=== PATIENT | male | born 1960 | race Caucasian/White ===

== ENCOUNTER 2024-01-02 15:12 | Inpatient (IN) ==
--- NOTE | 2024-01-02 16:19 | EKG ---
Test Reason : SOB Blood Pressure : */* mmHG Vent. Rate : 67 BPM Atrial Rate : 67 BPM P-R Int : 160 ms QRS Dur : 94 ms QT Int : 376 ms P-R-T Axes : 52 96 63 degrees QTc Int : 397 ms Sinus rhythm with marked sinus arrhythmia Rightward axis Borderline ECG No previous ECGs available Confirmed by Constantin Desouza MD ([id number]) on 01/03/2024 7:50:41 AM Referred By: Confirmed By: Constantin Desouza MD
[2024-01-02 16:40] LABS: BASOPHILS # (AUTO) 0.1 X10^3/uL (0.0-0.1); BASOPHILS % (AUTO) 1.7 % (0.2-1.0); EOSINOPHILS # (AUTO) 0.2 x10^3/uL (0.0-0.2); EOSINOPHILS % (AUTO) 3.1 % (0.9-2.9); HEMATOCRIT 38.5 % (42.0-54.0); HEMOGLOBIN 13.1 g/dL (13.5-18.0); LYMPHOCYTES # (AUTO) 0.7 X10^3/uL (1.3-2.9); LYMPHOCYTES % (AUTO) 12.8 % (21.0-51.0); MEAN CORPUSCULAR HEMOGLOBIN 34.4 pg (27.0-34.0); MEAN CORPUSCULAR HGB CONC 34.1 g/dL (33.0-35.0); MEAN CORPUSCULAR VOLUME 100.9 fL (80.0-100.0); MEAN PLATELET VOLUME 8.6 fL (7.4-11.0); MONOCYTES # (AUTO) 0.5 x10^3/uL (0.3-0.8); MONOCYTES % (AUTO) 9.2 % (0.0-13.0); NEUTROPHILS # (AUTO) 4.2 x10^3/uL (2.2-4.8); NEUTROPHILS % (AUTO) 73.2 % (42.0-75.0); PLATELET COUNT 165 X10^3/uL (150.0-450.0); RED BLOOD COUNT 3.81 X10^6/uL (4.7-6.0); RED CELL DISTRIBUTION WIDTH 14.2 % (11.6-16.5); WHITE BLOOD COUNT 5.7 X10^3/uL (3.6-10.0)
[2024-01-02 17:20] LABS: ALANINE AMINOTRANSFERASE 17 Units/L (12-78); ALBUMIN 3.5 g/dL (3.4-5.0); ALKALINE PHOSPHATASE 75 Units/L (46-116); ASPARTATE AMINO TRANSFERASE 18 Units/L (15-37); BLOOD UREA NITROGEN 10 mg/dL (7-18); CALCIUM 8.7 mg/dL (8.5-10.1); CARBON DIOXIDE 31.7 mmol/L (21-32); CHLORIDE 100 mmol/L (98-107); GLUCOSE 70 mg/dL (65-99); POTASSIUM 3.6 mmol/L (3.5-5.1); SODIUM 137 mmol/L (136-145); TOTAL PROTEIN 7.1 g/dL (6.4-8.2); eGFR NON BLACK RACES > 60 (>60)
[2024-01-02] MEDS ORDERED: NS 100 ML IV 100 ML ONE (17:43)
[2024-01-02] MEDS ORDERED: OMNIPAQUE 350 mg/mL 100 mL BTL 100 ML ONE (17:43)
[2024-01-02 18:08] VITALS: BMI 27.2
[2024-01-02 18:22] LABS: BILIRUBIN,URINE NEGATIVE (NEGATIVE); BLOOD/HEMOGLOBIN,URINE 4+ (NEGATIVE); GLUCOSE, URINE NEGATIVE (NEGATIVE); KETONES,URINE NEGATIVE (NEGATIVE); LEUKOCYTE ESTERASE ,URINE NEGATIVE (NEGATIVE); NITRITES,URINE NEGATIVE (NEGATIVE); PROTEIN,URINE NEGATIVE (NEGATIVE); UROBILINOGEN,URINE NORMAL (NORMAL)
[2024-01-02] MEDS: NS 1,000 ML IV 1,000 ML IV SCH (18:23)
[2024-01-02 18:33] LABS: APPEARANCE,URINE CLEAR (CLEAR); BACTERIA,URINE NEGATIVE /HPF (NEGATIVE); COLOR,URINE STRAW (YELLOW); RBC,URINE 0-2 /HPF (0-3); SQUAMOUS EPITHELIAL CELL,UR RARE /HPF (NEGATIVE)
[2024-01-02] MEDS: K-DUR TAB 20 MEQ PO ONE (18:37)
[2024-01-02] MEDS: CONSULT PHARMACY - POTASSIUM & MAGNESIUM XX SCH (19:16)
--- NOTE | 2024-01-02 19:16 | EKG ---
Test Reason : SOB Blood Pressure : */* mmHG Vent. Rate : 65 BPM Atrial Rate : 65 BPM P-R Int : 164 ms QRS Dur : 90 ms QT Int : 394 ms P-R-T Axes : 67 83 79 degrees QTc Int : 409 ms Sinus rhythm with marked sinus arrhythmia Otherwise normal ECG When compared with ECG of 02-JAN-2024 15:57, (Unconfirmed) No significant change was found Confirmed by Constantin Desouza MD ([id number]) on 01/03/2024 7:50:05 AM Referred By: Confirmed By: Constantin Desouza MD
--- NOTE | 2024-01-02 23:43 | EKG ---
Test Reason : SOB Blood Pressure : */* mmHG Vent. Rate : 71 BPM Atrial Rate : 71 BPM P-R Int : 172 ms QRS Dur : 90 ms QT Int : 404 ms P-R-T Axes : 65 79 72 degrees QTc Int : 439 ms Sinus rhythm with premature atrial complexes in a pattern of bigeminy Otherwise normal ECG When compared with ECG of 02-JAN-2024 19:00, (Unconfirmed) premature atrial complexes are now present Confirmed by Constantin Desouza MD ([id number]) on 01/03/2024 7:48:45 AM Referred By: Confirmed By: Constantin Desouza MD
--- NOTE | 2024-01-03 02:04 | CT ---
EXAM:CTA, CHESTHISTORY:CHEST PAIN, SOB, RULE OUT PE;COMPARISON:None.TECHNIQUE:Multiple axial images of the chest were obtained from the thoracic inlet to the upper abdomen after the administration of IV contrast. 3D reconstructions utilizing axial MIPS imaging was performed and reviewed. Dose reduction techniques including Automated Exposure Control (AEC) and adjustment of mA and kV were utilized.FINDINGS:There is a right MediPort catheter with its tip within the superior vena cava. There is no evidence for pulmonary artery embolus. The heart is not enlarged. There is atherosclerotic disease of the left anterior descending artery. There is no pericardial effusion. The aorta is intact. There are shotty AP window lymph nodes.The tracheobronchial tree is intact.There are subtle ground-glass opacity seen within the right upper lobe consistent with developing alveolar infiltrates more than the left upper lobe. There also focal patchy nodular infiltrates of the left upper lobe noted inferiorly and extending to the lingula. This is also seen of the left lower lobe. Discoid subsegmental atelectasis and focal pleural thickening of the left posterior lung base is noted. Incidental note is made of an azygous lobe. No chest wall abnormality is noted.There are calcified granulomas of the spleen. There are cholecystectomy clips in the gallbladder fossa. There is a supraumbilical ventral abdominal wall hernia with only herniation of omental fat through the defect.IMPRESSION:No pulmonary artery emboli.Early developing alveolar infiltrates scattered throughout both lungs, worse involving the left lung, more pronounced involving the lingula and left lower lobe.. Reactive AP window lymphadenopathy is seen.Evidence for prior granulomatous disease.THIS IS AN ELECTRONICALLY VERIFIED FINAL REPORT01/03/2024 2:01 AM - Electronically signed by Vicki Hill MD
--- NOTE | 2024-01-03 06:38 | CT ---
EXAM:CT ABDOMEN AND PELVIS WITH CONTRASTHISTORY:ABD PAIN, BLOOD IN STOOL;COMPARISON:None.TECHNIQUE:Axial CT images were obtained through the abdomen and pelvis after the intravenous administration of contrast. Coronal reformatted images were included.Informed written consent was obtained prior to contrast administration.All CT scans at this facility use dose modulation, iterative reconstruction, and/or weight based dosing when appropriate to reduce radiation dose to as low as reasonably achievable.FINDINGS:LOWER THORAX: Minimal left basilar atelectasisABDOMEN:LIVER: Within normal limits.GALLBLADDER: AbsentSPLEEN: Splenic granulomas are notedPANCREAS: Within normal limits.KIDNEYS: Benign left renal cystsADRENAL GLANDS: Within normal limits.GI TRACT: Sigmoid colonic diverticulosis is present without evidence of acute diverticulitisLYMPH NODES: No abnormally enlarged nodes.VESSELS: Mild diffuse athero sclerotic disease in the aortaPERITONEUM / RETROPERITONEUM: No free gas.PELVIS:BLADDER: Within normal limits.GENITALS: Within normal limits.BONES: Bilateral hip prostheses are noted.IMPRESSION:No definite inflammatory changes seen in the abdomen or pelvis. Sigmoid colonic diverticulosis noted without diverticulitis. This may be the source of patient's gastrointestinal bleeding.THIS IS AN ELECTRONICALLY VERIFIED FINAL REPORT01/03/2024 6:34 AM - Electronically signed by Bradley Gaming MD
[2024-01-03 07:17] LABS: BASOPHILS % (AUTO) 0.5 % (0.2-1.0); EOSINOPHILS # (AUTO) 0.3 x10^3/uL (0.0-0.2); EOSINOPHILS % (AUTO) 5.5 % (0.9-2.9); HEMATOCRIT 36.1 % (42.0-54.0); HEMOGLOBIN 12.3 g/dL (13.5-18.0); LYMPHOCYTES # (AUTO) 0.9 X10^3/uL (1.3-2.9); LYMPHOCYTES % (AUTO) 17.4 % (21.0-51.0); MEAN CORPUSCULAR HEMOGLOBIN 34.1 pg (27.0-34.0); MEAN CORPUSCULAR VOLUME 100.2 fL (80.0-100.0); MONOCYTES # (AUTO) 0.6 x10^3/uL (0.3-0.8); MONOCYTES % (AUTO) 11.7 % (0.0-13.0); NEUTROPHILS # (AUTO) 3.5 x10^3/uL (2.2-4.8); NEUTROPHILS % (AUTO) 64.9 % (42.0-75.0); PLATELET COUNT 154 X10^3/uL (150.0-450.0); RED CELL DISTRIBUTION WIDTH 13.9 % (11.6-16.5); WHITE BLOOD COUNT 5.3 X10^3/uL (3.6-10.0)
[2024-01-03 07:40] LABS: ALANINE AMINOTRANSFERASE 16 Units/L (12-78); ALBUMIN 3.2 g/dL (3.4-5.0); ALKALINE PHOSPHATASE 70 Units/L (46-116); ASPARTATE AMINO TRANSFERASE 16 Units/L (15-37); BLOOD UREA NITROGEN 9 mg/dL (7-18); CALCIUM 8.5 mg/dL (8.5-10.1); CARBON DIOXIDE 26.7 mmol/L (21-32); CHLORIDE 106 mmol/L (98-107); COR CA(FOR HYPOALB) 9.1 mg/dL (8.5-10.1); CREATININE 0.63 mg/dL (0.70-1.30); GLUCOSE 81 mg/dL (65-99); POTASSIUM 3.4 mmol/L (3.5-5.1); SODIUM 140 mmol/L (136-145); TOTAL PROTEIN 6.5 g/dL (6.4-8.2); eGFR NON BLACK RACES > 60 (>60)
--- NOTE | 2024-01-03 08:04 | RAD ---
EXAM: CHEST, 1 VIEW HISTORY: SOB; COMPARISON: Same day CTA chest. TECHNIQUE: AP view of the chest FINDINGS: Right chest wall port with tip in the upper SVC. The cardiac and mediastinal contours are normal in size. Lungs are hyperexpanded. There are mild patchy opacities in the left mid to lower lung. No d efinite pleural effusion or pneumothorax. IMPRESSION: Patchy left lung opacities consistent with pneumonia better seen on same day CT. Recommend follow-up imaging to document resolution after appropriate treatment. THIS IS AN ELECTRONICALLY VERIFIED FINAL REPORT 01/03/2024 7:52 AM - Electronically signed by Kiran Hughes MD
[2024-01-03] MEDS: LEVAQUIN PREMIX IV 750 MG 750 MG/150 ML BAG IV SCH (09:02)
[2024-01-03] MEDS: FORTAZ or TAZICEF VIAL INJ 1 G in NS 100 ML IV 100 ML IV SCH (09:02)
[2024-01-03] MEDS: LOVENOX INJ 40 MG SYR SC SCH (09:05)
[2024-01-03] MEDS: DUONEB 0.5 MG/3 MG (3 mL) NEB SCH (09:29)
[2024-01-03] MEDS: VITAMIN D3 125 mcg (5,000 UNITS) PO SCH (11:02)
[2024-01-03] MEDS: SYNTHROID 100 mcg TAB PO SCH (11:02)
[2024-01-03] MEDS: MOBIC TAB 15 MG PO SCH (11:03)
[2024-01-03] MEDS: FERROUS GLUCONATE PO SCH (11:03)
[2024-01-03] MEDS: ALPRAZOLAM ODT PO SCH (11:04)
[2024-01-03] MEDS: ZyrTEC TAB 10 MG PO SCH (11:06)
[2024-01-03] MEDS: VITAMIN B-12 PO SCH (11:06)
--- NOTE | 2024-01-03 12:35 | DR.H&P ---
H&P - History & Physical for Day of: H&P Date: 01/02/24 - Chief Complaint Chief Complaint: COUGH, SOB, CHEST PAIN, WEAKNESS - History of Present Illness History of Present Illness: IS A 63 YEAR OLD PATIENT OF OURS. HE PRESENTED TO THE HOSPITAL A DIRECT ADMISSION, INPATIENT STATUS, FOR TREATMENT OF PNEUMONIA, FAILED OUTPATIENT TREATMENT. SINCE 11/19/2023, PATIENT HAS BEEN TREATED WITH AZITHROMYCIN, PREDNISONE, TWO ROUNDS OF DOXYCYCLINE, ALBUTEROL NEBS, AND DEXAMETHASONE. HE DENIES MEANINGFUL IMPROVEMENT IN COUGH AND SHORTNESS OF BREATH DESPITE COMPLIANCE WITH MEDICATIONS. ADDITIONALLY, PATIENT COMPLAINS OF CHEST PAIN, GENERALIZED WEAKNESS, INTERMITTENT ABDOMINAL PAIN, AND BLOOD IN STOOLS. HIS MEDICAL HX INCLUDES: HYPOTHYROIDISM, CANCER OF RIGHT TONSIL, GENERALIZED ANXIETY, ALLERGIC RHINITIS, AND VITAMIN B AND D DEFICIENCIES. ON ADMISSION, HIS VITALS WERE: 97.6-76-20-100%-120/71. LABS WERE OBTAINED. WBC 5.7, RBC 3.81, HGB 13.1, HCT 38.5, PLT COUNT 165, D-DIMER 0.52, SODIUM 137, POTASSIUM 3.6, CHLORIDE 100, CARBON DIOXIDE 31.7, BUN 10, CREATININE 0.90, GLUCOSE 70, CALCIUM 8.7, TOTAL BILI 0.60, AST 18, ALT 17, ALK PHOS 75, BNP 9.3, TOTAL PROTEIN 7.1, ALBUMIN 3.5. COVID, INFLUENZA, AND RSV NEGATIVE. A RESPIRATORY CERDA EL WAS SENT OUT. STOOL WAS NEGATIVE FOR OCCULT BLOOD. A URINALYSIS WAS OBTAINED AND REVEALED: WBC NONE SEEN, RBC 0-2, BACTERIA NEGATIVE. LEUKOCYTES NEGATIVE. AN ABDOMEN/PELVIS CT WITH CONTRAST WAS OBTAINED AND REVEALED: No definite inflammatory changes seen in the abdomen or pelvis. Sigmoid colonic diverticulosis noted without diverticulitis. This may be the source of patient's gastrointestinal bleeding. A CHEST CTA WAS OBTAINED AND REVEALED: No pulmonary artery emboli. Early developing alveolar infiltrates scattered throughout both lungs, worse involving the left lung, more pronounced involving the lingula and left lower lobe. Reactive AP window lymphadenopathy is seen. Evidence for prior granulomatous disease. A CHEST XRAY WAS OBTAINED AND REVEALED: Patchy left lung opacities consistent with pneumonia better seen on same day CT. EKG OBTAINED AND REVEALED: SINUS RHYTHM WITH MARKED SINUS ARRHYTHMIA. ON ADMISSION, HE WAS STARTED ON NORMAL SALINE AT 80 ML/HR, LEVAQUIN 750MG IV DAILY, FORTAZ 1G IV Q8H, DUONEBS TID, PULMICORT NEBS BID, LOVENOX 40MG SC DAILY. WE RESUMED HIS HOME MEDICATIONS OF ALPRAZOLAM, CETIRIZINE, VITAMIN D3, VITAMIN B12, FERROUS GLUCONATE, SYNTHROID, MELOXICAM. WE WILL CONTINUE WITH CURRENT PLAN OF CARE TODAY. OTHERWISE, WE WILL FOLLOW-UP WITH AM LABS AND CONTINUE TO MONITOR. TIME SPENT ON CLINICAL ASSESSMENT, REVIEWING LABS AND IMAGING, DECISION MAKING, AND DOCUMENTATION GREATER THAN 75 MINUTES. - Past Medical History Past Medical History: Anxiety, GERD, Hypothyroidism Additional Medical History: ALLERGIC RHINITIS, RIGHT TONSIL CANCER - Family History Family Medical History: Diabetes Mellitus - Social History Does patient currently use any type of tobacco product: Yes Type of Tobacco Use: dip - Review of Systems Constitutional: Weakness Eyes: No Symptoms Reported ENT: No Symptoms Reported Respiratory: Cough, Shortness of Breath, SOB with Excertion Cardiovascular: No Symptoms Reported Gastrointestinal: Abdominal Pain, Melena Genitourinary: No Symptoms Reported Musculoskeletal: No Symptoms Reported Skin: No Symptoms Reported Neurological: Weakness - Physical Exam Vital Signs: Vital Signs Temperature 97.3 F Temperature 97.1 F Pulse Rate [Brachial] 83 Pulse Rate [Brachial] 71 Respiratory Rate 18 Respiratory Rate 20 Blood Pressure [Left Arm] 114/70 Blood Pressure [Left Arm] 112/76 O2 Sat by Pulse Oximetry 96 O2 Sat by Pulse Oximetry 96 Oriented: Normal Eyes: Normal Ear: Normal Nose: Normal Throat: Normal Respiratory: Diminished Throughout Cardiovascular: Normal : Normal Auscultation: Bowel Sounds: Normal Palpation: Normal Tenderness: Normal Skin: Normal Musculoskeletal: Normal Psychiatric: Normal Mood Description: Calm Affect: Normal Speech Pattern: Clear - Assessment/Plan (1) Pneumonia Qualifiers: Pneumonia type: due to unspecified organism Laterality: bilateral Lung location: unspecified part of lung Qualified Code(s): J18.9 - Pneumonia, unspecified organism Status: Acute Plan: ADMIT, SUPPLEMENTAL OXYGEN, NORMAL SALINE AT 80 ML/HR, LEVAQUIN 750MG IV DAILY, FORTAZ 1G IV Q8H, DUONEBS TID, PULMICORT NEBS BID, LOVENOX 40MG SC DAILY. WE RESUMED HIS HOME MEDICATIONS OF ALPRAZOLAM, CETIRIZINE, VITAMIN D3, VITAMIN B12, FERROUS GLUCONATE, SYNTHROID, MELOXICAM. (2) Shortness of breath Status: Acute (3) Generalized weakness Status: Acute (4) Diverticulosis Status: Acute (5) Generalized anxiety disorder Status: Chronic (6) Hypothyroidism Qualifiers: Hypothyroidism type: acquired Qualified Code(s): E03.9 - Hypothyroidism, unspecified Status: Chronic (7) Allergic rhinitis Qualifiers: Allergic rhinitis seasonality: unspecified Status: Chronic (8) Vitamin B deficiency Status: Chronic (9) Vitamin D deficiency Status: Chronic (10) History of cancer tonsil Status: Chronic - Allergies Allergies/Adverse Reactions: Allergies Allergy/AdvReac Type Severity Reaction Status Date / Time egg Allergy Verified 01/02/24 19:14 Penicillins Allergy Verified 04/09/23 07:38 - Medications Home Medications: Home Medications Medication Instructions Recorded Confirmed alprazolam 1 mg tablet (Xanax) See Protocol PO BID 01/03/24 01/03/24 cetirizine 10 mg tablet 10 mg PO QDAY 01/03/24 01/03/24 cholecalciferol (vitamin D3) 125 01/03/24 01/03/24 mcg (5,000 unit) tablet (Vitamin D3) cyanocobalamin (vitamin B-12) 1,000 mcg PO QDAY 01/03/24 01/03/24 1,000 mcg tablet (Vitamin B-12) ferrous sulfate 324 mg (65 mg 324 mg PO QDAY 01/03/24 01/03/24 iron) tablet,delayed release levothyroxine 100 mcg tablet 100 mcg PO QDAY 01/03/24 01/03/24 meloxicam 15 mg tablet 15 mg PO QDAY 01/03/24 01/03/24
[2024-01-03] MEDS: PULMICORT NEB TX 0.5 MG NEB SCH (14:51)
[2024-01-03] MEDS: VISTARIL PO PRN (15:04)
[2024-01-03] MEDS: VALIUM PO PRN (17:27)
[2024-01-04 06:26] LABS: EOSINOPHILS # (AUTO) 0.3 x10^3/uL (0.0-0.2); HEMOGLOBIN 11.7 g/dL (13.5-18.0); NEUTROPHILS # (AUTO) 2.4 x10^3/uL (2.2-4.8)
[2024-01-04 06:35] LABS: EOSINOPHILS % (AUTO) 7.1 % (0.9-2.9); HEMATOCRIT 34.5 % (42.0-54.0); LYMPHOCYTES % (AUTO) 23.6 % (21.0-51.0); MEAN CORPUSCULAR HEMOGLOBIN 33.8 pg (27.0-34.0); MEAN CORPUSCULAR VOLUME 99.4 fL (80.0-100.0); MONOCYTES # (AUTO) 0.4 x10^3/uL (0.3-0.8); MONOCYTES % (AUTO) 10.1 % (0.0-13.0); NEUTROPHILS % (AUTO) 58.2 % (42.0-75.0); PLATELET COUNT 148 X10^3/uL (150.0-450.0); RED BLOOD COUNT 3.47 X10^6/uL (4.7-6.0); RED CELL DISTRIBUTION WIDTH 13.9 % (11.6-16.5); WHITE BLOOD COUNT 4.2 X10^3/uL (3.6-10.0)
[2024-01-04 06:50] LABS: ALANINE AMINOTRANSFERASE 14 Units/L (12-78); ALBUMIN 2.9 g/dL (3.4-5.0); ALKALINE PHOSPHATASE 62 Units/L (46-116); ASPARTATE AMINO TRANSFERASE 15 Units/L (15-37); BLOOD UREA NITROGEN 8 mg/dL (7-18); CALCIUM 8.2 mg/dL (8.5-10.1); CARBON DIOXIDE 27.7 mmol/L (21-32); CHLORIDE 109 mmol/L (98-107); COR CA(FOR HYPOALB) 9.1 mg/dL (8.5-10.1); CREATININE 0.69 mg/dL (0.70-1.30); GLUCOSE 80 mg/dL (65-99); POTASSIUM 3.4 mmol/L (3.5-5.1); SODIUM 143 mmol/L (136-145); eGFR NON BLACK RACES > 60 (>60)
[2024-01-04 08:43] VITALS: BP 127/78; RESP 18; TEMP 98; O2SAT 98
[2024-01-04 09:04] VITALS: PULSE 74
--- NOTE | 2024-01-04 12:06 | RAD ---
EXAM:CHEST, 1 VIEWHISTORY:Shortness of breathCOMPARISON:01/02/2024FINDINGS:The trachea is midline. The cardiac silhouette is unremarkable . A right sided dusty catheter is observed with the tip in the SVC. The lungs are clear without focal infiltrate or effusion. The bony thorax is unremarkable.IMPRESSION:No acute cardiopulmonary disease.THIS IS AN ELECTRONICALLY VERIFIED FINAL REPORT01/04/2024 12:03 PM - Electronically signed by Hamilton John MD
== END 2024-01-04 11:45 | disposition home or self-care (01) | DRG 195 ==
LOC: MED/SURG → OBSVTOIN 15:21
PROVIDERS: ADMIT Internal Medicine; ATTEND Internal Medicine
DX: R07.89 Other chest pain; Z20.822 Contact with and (suspected) exposure to COVID-19; F41.8 Other specified anxiety disorders; E53.9 Vitamin B deficiency, unspecified; E55.9 Vitamin D deficiency, unspecified; Z85.818 Personal history of malignant neoplasm of other sites of lip, oral cavity, and pharynx; J30.2 Other seasonal allergic rhinitis; R06.02 Shortness of breath; K57.30 Diverticulosis of large intestine without perforation or abscess without bleeding; E03.8 Other specified hypothyroidism; J18.8 Other pneumonia, unspecified organism